=== PATIENT | male | born 1985 | race Caucasian/White ===

== ENCOUNTER 2019-02-12 05:53 | Day surgery (SDC) | payer OTHER ==
[2019-02-12] VITALS (14 sets, daily range): BP systolic 104–162; BP diastolic 68–103; PULSE 88–102; RESP 10–24; Ht 170.2 cm; Wt 108.3 kg
[~2019-02-12] VITALS: Ht 170.2 cm; Wt 108.3 kg
[~2019-02-12 05:53] MED LIST: ADV25050 INHALATION; ALBU18HF INHALATION; POLYMYXIN/BACITRACIN 1L IRRIG IRR ONE
--- NOTE | 2019-02-12 06:59 | PREAC ---
Date/Time of Note Date/Time of Note DATE: 02/12/19 TIME: 06:57 Anesthesia Eval and Record Evaluation Time Pre-Procedure Interview DATE: 02/12/19 TIME: 06:57 Age 33 Sex male NPO: 8 hrs Preoperative diagnosis right foot pain, hx malunion Planned procedure removal of hardware right foot Past Medical History Past Medical History: Includes Pulm: Asthma (average use of albuterol for rescue 3 times a week, hospitalized only once for asthma last year ) Surgery & Anesthesia Issues No known issue Meds Anticoagulation: No Beta Tayler within 24 hr: No Reason Beta Tayler not given: Pt. not on B-Tayler Reported Medications Salmeterol Xinaf/Fluticasone* (Advair*) 250-50 Diskus Inhaler, 1 INH INHALATION BID, #1 INHALER 01/12/16 Albuterol Sulfate* (Ventolin HFA*) 18 Gm Hfa.aer.ad, 2 PUFF INHALATION Q4H, #1 INHALER 01/12/16 Current Medications Cefazolin Sodium/ Dextrose 50 ml @ 100 mls/hr PRE-OP ONCE IVPB ; Start 02/12/19 at 07:00; Stop 02/12/19 at 07:29 Meds reviewed: Yes Allergies Coded Allergies: No Known Allergies (Verified Allergy, Unknown, 02/12/19) Allergies Reviewed: Yes Labs/Studies Labs Reviewed: Reviewed by anesthesiologist test: N/A Studies: ECG, CXR Pre-procedure Exam Last vitals Vital Signs Date Temp Pulse Resp B/P (MAP) Pulse Ox O2 O2 Flow FiO2 Time Delivery Rate 02/12/19 97.9 90 16 126/88 97 06:52 (101) Airway: Adequate mouth opening, Adequate thyromental dist Mallampati: Mallampati II Teeth: Normal Lung: Normal Heart: Normal ASA Physical Status ASA physical status: 2 Emergency: None Planned Anesthetic General/MAC: LMA Planned Pain Management Parenteral pain med, Local by surgeon Pre-operative Attestations Prior to commencing anesthesia and surgery, the patient was re-evaluated, there was verification of: *The patient's identity *The results of appropriate recent lab work and preoperative vital signs *The above evaluation not changing prior to induction *Anesthetic plan, risk benefits, alternative and complications discussed with patient/family; questions answered; patient/family understands, accepts and wishes to proceed. APRIL RIVAS February 12, 2019 06:59
[2019-02-12] MEDS ORDERED: CEFAZOLIN 2 GM/50 ML (PMX) 50 ML IVPB ONE (07:00)
[2019-02-12] MEDS ORDERED: DESFLURANE 15 MIN ONE (07:00)
[2019-02-12] MEDS ORDERED: MIDAZOLAM 1 MG/ML 2 ML INJ ONE (07:05)
[2019-02-12] MEDS ORDERED: CEFAZOLIN 1 GM INJ ONE (07:05)
[2019-02-12] MEDS ORDERED: LIDOCAINE 2% (SDV) 5 ML INJ ONE (07:05)
[2019-02-12] MEDS ORDERED: PROPOFOL 20 ML ONE (07:05)
[2019-02-12] MEDS ORDERED: FENTAnyl 50 MCG/ML VIAL ONE ×2 (07:05→07:55)
--- NOTE | 2019-02-12 07:21 | HPN ---
Date/Time of Note Date/Time of Note DATE: 02/12/19 TIME: 07:21 Interval H&P Admission Note Pt. seen H&P reviewed: No system changes ZAHIRA MCGINNIS DPM February 12, 2019 07:21
[2019-02-12] MEDS ORDERED: LACTATED RINGER'S 1,000 ML IV SCH (07:30)
[2019-02-12] MEDS ORDERED: LIDOCAINE 2% (MDV) 20 ML INJ ONE (07:40)
[2019-02-12] MEDS ORDERED: BUPIVACAINE 0.5% (SDV) 30 ML INJ ONE (07:40)
[2019-02-12] MEDS ORDERED: POLYMYXIN/BACITRACIN 1L IRRIG ONE (07:41)
[2019-02-12] MEDS ORDERED: ONDANSETRON 4 MG INJ ONE (07:55)
[2019-02-12] MEDS ORDERED: DEXAMETHASONE 4 MG/ML 5 ML INJ ONE (07:55)
[2019-02-12] MEDS ORDERED: METOCLOPRAMIDE 10 MG INJ ONE (07:55)
[2019-02-12] MEDS ORDERED: FAMOTIDINE 20 MG INJ ONE (07:55)
[2019-02-12] MEDS ORDERED: POLYMYXIN/BACITRACIN 1L IRRIG IRR ONE (08:09)
[2019-02-12] MEDS ORDERED: MEPERIDINE 25 MG INJ IV PRN (08:30)
[2019-02-12] MEDS ORDERED: ALBUTEROL 0.083% (NEB) 2.5 MG/3 ML AMP HHN PRN (08:30)
[2019-02-12] MEDS ORDERED: OXYCODONE/ACETAMINOPHEN (5/325) TAB PO PRN ×2 (08:30)
[2019-02-12] MEDS ORDERED: ONDANSETRON 4 MG INJ IV PRN (08:30)
[2019-02-12] MEDS ORDERED: FENTAnyl 50 MCG/ML VIAL IV PRN ×3 (08:30)
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
--- NOTE | 2019-02-12 10:55 | PAC ---
Date/Time of Note Date/Time of Note DATE: 02/12/19 TIME: 10:55 Post-Anesthesia Notes Post-Anesthesia Note Last documented vital signs Vital Signs Date Temp Pulse Resp B/P (MAP) Pulse Ox O2 O2 Flow FiO2 Time Delivery Rate 02/12/19 97.7 88 18 138/81 95 Room Air 10:07 (100) 02/12/19 3.0 09:53 Activity: WNL Respiratory function: WNL Cardiovascular function: WNL Mental status: Baseline Pain reasonably controlled: Yes Hydration appropriate: Yes Nausea/Vomiting absent: Yes APRIL RIVAS February 12, 2019 10:55
== END 2019-02-12 11:41 | disposition home or self-care (01) ==
LOC: SDS 05:53
PROVIDERS: ATTEND Podiatrist Foot & Ankle Surgery
DX: T84.84XA Pain due to internal orthopedic prosthetic devices, implants and grafts, initial encounter (principal); M79.671 Pain in right foot; Y79.3 Surgical instruments, materials and orthopedic devices (including sutures) associated with adverse incidents; Y83.8 Other surgical procedures as the cause of abnormal reaction of the patient, or of later complication, without mention of misadventure at the time of the procedure; J45.909 Unspecified asthma, uncomplicated
CPT/HCPCS: 20680; 73630; J0690; J1100; J2250; J2405; J2765; J3010; Z7512; Z7610